=== PATIENT | female | born 1980 | race Caucasian/White ===

== ENCOUNTER 2017-03-14 03:58 | Emergency (ER) | payer OTHER ==
[2017-03-14 04:02] VITALS: BMI 25.2
[2017-03-14 04:03] VITALS: BP 134/92; PULSE 80; RESP 18; TEMP 98.1; O2SAT 98
[2017-03-14] MEDS ORDERED: oxyCODONE 5 mg Immediate Release Tab PO STA (04:31)
--- NOTE | 2017-03-14 04:51 | ED PDOC ---
Arrival/HPI - General Chief Complaint: Back Pain Time Seen by Provider: 03/14/17 04:02 Historian: Patient - History of Present Illness Narrative History of Present Illness (Text): 03/14/17 04:10 A 36 year old female presents to the Emergency department complaining of lower back pain since last night. Patient reports no trauma. Patient notes she was lifting something heavy a couple days ago. Patient also notes a history of lower back pain in the past. Patient denies any other complaints at this time. Time/Duration: Other (last night) Symptom Onset: Sudden Symptom Course: Unchanged Activities at Onset: Rest Context: Home Associated Symptoms (Text): none Past Medical History - Provider Review Nursing Documentation Reviewed: Yes - Infectious Disease Hx of Infectious Diseases: None - Tetanus Immunization Tetanus Immunization: Unknown - Cardiac Hx Cardiac Disorders: No - Pulmonary Hx Respiratory Disorders: No - Neurological Hx Neurological Disorder: No - HEENT Hx HEENT Disorder: No - Renal Hx Renal Disorder: No - Endocrine/Metabolic Hx Endocrine Disorders: No - Hematological/Oncological Hx Blood Disorders: No - Integumentary Hx Dermatological Disorder: Yes Hx Psoriasis: Yes - Musculoskeletal/Rheumatological Hx Musculoskeletal Disorders: Yes Other/Comment: sciatica. tendonitis. broke tail bone - Gastrointestinal Hx Gastrointestinal Disorders: Yes Hx Gastritis: Yes Other/Comment: peptic ulcer. colitis - Genitourinary/Gynecological Hx Genitourinary Disorders: Yes Other/Comment: overian cyst. endometriosis - Psychiatric Hx Psychophysiologic Disorder: No Hx Substance Use: No - Surgical History Other/Comment: ovarian cyst. colonscopy - Anesthesia Hx Anesthesia: Yes Hx Malignant Hyperthermia: No - Suicidal Assessment Feels Threatened In Home Enviroment: No Family/Social History - Physician Review Nursing Documentation Reviewed: Yes Family/Social History: No Known Family HX Smoking Status: Current Some Days Smoker Hx Alcohol Use: Yes (SOCIALLY) Frequency of alcohol use: Socially Hx Substance Use: No Hx Substance Use Treatment: No Allergies/Home Meds Allergies/Adverse Reactions: Allergies kiwi Allergy (Verified 02/22/16 14:14) ANGIOEDEMA Review of Systems - Physician Review All systems were reviewed & negative as marked: Yes - Review of Systems Constitutional: absent: Fevers Cardiovascular: absent: Chest Pain Musculoskeletal: Back Pain (lower) Neurological: absent: Headache, Dizziness Physical Exam Vital Signs Reviewed: Yes Vital Signs Temp Pulse Resp BP Pulse Ox 03/14/17 04:03 98.1 F 80 18 134/92 H 98 Temperature: Afebrile Blood Pressure: Hypertensive Pulse: Regular Respiratory Rate: Normal Appearance: Positive for: Well-Appearing, Non-Toxic, Comfortable Pain Distress: None Mental Status: Positive for: Alert and Oriented X 3 - Systems Exam Head: Present: Atraumatic, Normocephalic Pupils: Present: PERRL Extroacular Muscles: Present: EOMI Conjunctiva: Present: Normal Mouth: Present: Moist Mucous Membranes Neck: Present: Normal Range of Motion Respiratory/Chest: Present: Clear to Auscultation, Good Air Exchange. No: Respiratory Distress, Accessory Muscle Use Cardiovascular: Present: Regular Rate and Rhythm, Normal S1, S2. No: Murmurs Abdomen: Present: Normal Bowel Sounds. No: Tenderness, Distention, Peritoneal Signs Back: Present: Normal Inspection Upper Extremity: Present: Normal Inspection. No: Cyanosis, Edema Lower Extremity: Present: Normal Inspection. No: Edema Neurological: Present: GCS=15, CN II-XII Intact, Speech Normal Skin: Present: Warm, Dry, Normal Color. No: Rashes Psychiatric: Present: Alert, Oriented x 3, Normal Insight, Normal Concentration Medical Decision Making ED Course and Treatment: 03/14/17 04:10 Impression: A 36 year old male with lower back pain. Differential Diagnosis included but are not limited to: Plan: -- Flexeril, Oxycodone -- Reassess and disposition Prior Visits: Notes and results from previous visits were reviewed. Patient last reported to the Emergency department on 02/22/16 for evaluation of dysuria, frequency and urgency. Patient was advised to follow up with private doctor and take medications. Patient also advised to see SWITCH TECHNICIAN to review STD test and urine culture result. Patient was discharged. Progress Notes: 03/14/17 04:20 On re-evaluation, patient feels better and is in no acute distress. I have discussed the results and plan with the patient, who expresses understanding. Patient in agreement with plan to be discharged home. Patient is stable for discharge. Patient was instructed to follow up with physician or return if symptoms worsen or new concerning symptoms arise. - Medication Orders Current Medication Orders: Discontinued Medications Cyclobenzaprine HCl (Flexeril) 10 mg PO STAT STA Stop: 03/14/17 04:32 Last Admin: 03/14/17 04:42 Dose: 10 mg Oxycodone HCl (Oxycodone Immediate Release Tab) 5 mg PO STAT STA Stop: 03/14/17 04:32 Last Admin: 03/14/17 04:42 Dose: 5 mg - Scribe Statement The provider has reviewed the documentation as recorded by the Joel Castanon Provider Scribe Attestation: All medical record entries made by the Scribe were at my direction and personally dictated by me. I have reviewed the chart and agree that the record accurately reflects my personal performance of the history, physical exam, medical decision making, and the department course for this patient. I have also personally directed, reviewed, and agree with the discharge instructions and disposition. Disposition/Present on Arrival - Present on Arrival Any Indicators Present on Arrival: No History of DVT/PE: No History of Uncontrolled Diabetes: No Urinary Catheter: No History of Decub. Ulcer: No History Surgical Site Infection Following: None - Disposition Have Diagnosis and Disposition been Completed?: Yes Diagnosis: Low back pain Disposition: HOME/ ROUTINE Disposition Time: 04:25 Condition: GOOD Discharge Instructions (ExitCare): Acute Low Back Pain (ED) Additional Instructions: Thank you for letting us take care of you today. Your provider was Dr. Rivas. You were treated for back pain. The emergency medical care you received today was directed at your acute symptoms. If you were prescribed any medication, please fill it and take as directed. It may take several days for your symptoms to resolve. Return to the Emergency Department if your symptoms worsen, do not improve, or if you have any other problems. Please contact your doctor or call one of the physicians/clinics you have been referred to that are listed on the Patient Visit Information form that is included in your discharge packet. Bring any paperwork you were given at discharge with you along with any medications you are taking to your follow up visit. Our treatment cannot replace ongoing medical care by a primary care provider (PCP) outside of the emergency department. Thank you for allowing the [facility] team to be part of your care today. Follow up with your doctor in 2-3 days for re-evaluation. Prescriptions: Cyclobenzaprine [Cyclobenzaprine HCl] 10 mg PO Q8 PRN #20 tab PRN Reason: Muscle Spasm oxyCODONE [oxyCODONE Immediate Release Tab] 5 mg PO Q6 PRN #10 tab PRN Reason: Pain, Severe (8-10) Referrals: [facility], [Non-Staff] - Follow up with primary
== END 2017-03-14 04:46 | disposition home or self-care (01) ==
LOC: ED 03:58
DX: M54.5 Low back pain (principal)

== ENCOUNTER 2017-04-19 01:14 | Emergency (ER) | payer OTHER ==
[2017-04-19 01:38] VITALS: BP 136/89; PULSE 90; TEMP 97.8; BMI 24.7
--- NOTE | 2017-04-19 01:45 | ED PDOC ---
Arrival/HPI - General Chief Complaint: Eye Problem Time Seen by Provider: 04/19/17 01:38 Historian: Patient - History of Present Illness Narrative History of Present Illness (Text): 04/19/17 01:44 Latrice Stiles is a 36 year old female who presents to the Emergency department complaining of right eye stye for the past 2 weeks, worse over the past 3-4 days. Patient reports associated right eye irritation and notes she was seen by her PMD this week for similar complaints. Patient was placed on Zithromycin but denies any relief. Patient denies any vision changes, eye discharge, headache, or any other complaints. Time/Duration: < month (2 weeks) Symptom Onset: Gradual Symptom Course: Unchanged Activities at Onset: Rest, Light Context: Home Past Medical History - Provider Review Nursing Documentation Reviewed: Yes - Infectious Disease Hx of Infectious Diseases: None - Tetanus Immunization Tetanus Immunization: Unknown - Cardiac Hx Cardiac Disorders: No - Pulmonary Hx Respiratory Disorders: No - Neurological Hx Neurological Disorder: No - HEENT Hx HEENT Disorder: No - Renal Hx Renal Disorder: No - Endocrine/Metabolic Hx Endocrine Disorders: No - Hematological/Oncological Hx Blood Disorders: No - Integumentary Hx Dermatological Disorder: Yes Hx Psoriasis: Yes - Musculoskeletal/Rheumatological Hx Musculoskeletal Disorders: Yes Other/Comment: sciatica. tendonitis. broke tail bone - Gastrointestinal Hx Gastrointestinal Disorders: Yes Hx Gastritis: Yes Other/Comment: peptic ulcer. colitis - Genitourinary/Gynecological Hx Genitourinary Disorders: Yes Other/Comment: overian cyst. endometriosis - Psychiatric Hx Psychophysiologic Disorder: No Hx Substance Use: No - Surgical History Other/Comment: ovarian cyst. colonscopy - Anesthesia Hx Anesthesia: Yes Hx Malignant Hyperthermia: No - Suicidal Assessment Feels Threatened In Home Enviroment: No Family/Social History - Physician Review Nursing Documentation Reviewed: Yes Family/Social History: Unknown Family HX Smoking Status: Current Some Days Smoker Hx Alcohol Use: Yes (SOCIALLY) Hx Substance Use: No Hx Substance Use Treatment: No Allergies/Home Meds Allergies/Adverse Reactions: Allergies kiwi Allergy (Verified 04/19/17 01:38) ANGIOEDEMA Review of Systems - Physician Review All systems were reviewed & negative as marked: Yes - Review of Systems Constitutional: Normal Eyes: Other (+right eye stye, +right eye irritation) ENT: Normal Gastrointestinal: Normal. absent: Diarrhea, Nausea, Vomiting Neurological: Normal. absent: Headache, Dizziness Psychiatric: Normal Physical Exam Vital Signs Reviewed: Yes Vital Signs Temp Pulse Resp BP Pulse Ox 04/19/17 01:38 97.8 F 90 16 136/89 98 04/19/17 01:37 97.8 F 90 16 136/89 100 Temperature: Afebrile Blood Pressure: Normal Pulse: Regular Respiratory Rate: Normal Appearance: Positive for: Well-Appearing, Non-Toxic, Comfortable Pain Distress: None Mental Status: Positive for: Alert and Oriented X 3 - Systems Exam Head: Present: Normocephalic, Other (Right eye stye) Pupils: Present: PERRL Extroacular Muscles: Present: EOMI Conjunctiva: Present: Normal Mouth: Present: Moist Mucous Membranes Neck: Present: Normal Range of Motion Neurological: Present: GCS=15, CN II-XII Intact, Speech Normal Skin: Present: Warm, Dry, Normal Color. No: Rashes Psychiatric: Present: Alert, Oriented x 3, Normal Insight, Normal Concentration Medical Decision Making ED Course and Treatment: 04/19/17 01:44 Impression: 36 year old female complaining of a right eye stye with associated irritation. Differential Diagnosis include but are not limited to: stye Plan: -- Tobrex -- Bactrim -- Reassess and disposition Prior Visits: Notes and results from previous visits were reviewed. On 03/14/2017, pt was seen in the Emergency department for lower back pain. Pt was d/c home. Progress Notes: 04/19/17 02:23 On re-evaluation, the patient feels better and is in no acute distress. I have discussed the results and plan with the patient, who expresses understanding. Patient in agreement with plan to discharged home. Patient is stable for discharge. Patient was instructed to follow up with physician/opthamologist/ clinic in 1-2 days or return if symptoms worsen or new concerning symptoms arise. Re-evaluation Time: 02:23 Reassessment Condition: Re-examined, Improved - Medication Orders Current Medication Orders: Discontinued Medications Tobramycin Sulfate (Tobrex 0.3% Ophth Oint) 0 appl OD STAT STA Stop: 04/19/17 02:02 Last Admin: 04/19/17 02:20 Dose: 1 applic Trimethoprim/Sulfamethoxazole (Bactrim Ds Tab) 1 tab PO ONCE ONE PRN Reason: Protocol Stop: 04/19/17 02:02 Last Admin: 04/19/17 02:20 Dose: 1 tab - Scribe Statement The provider has reviewed the documentation as recorded by the Scribe Ioana Rose All medical record entries made by the Scribe were at my direction and personally dictated by me. I have reviewed the chart and agree that the record accurately reflects my personal performance of the history, physical exam, medical decision making, and the department course for this patient. I have also personally directed, reviewed, and agree with the discharge instructions and disposition. Disposition/Present on Arrival - Present on Arrival Any Indicators Present on Arrival: No History of DVT/PE: No History of Uncontrolled Diabetes: No Urinary Catheter: No History of Decub. Ulcer: No History Surgical Site Infection Following: None - Disposition Have Diagnosis and Disposition been Completed?: Yes Diagnosis: Sty, external Disposition: HOME/ ROUTINE Disposition Time: 02:23 Patient Problems: Current Active Problems Problem Status Onset Sty, external Acute Condition: GOOD Discharge Instructions (ExitCare): Sg (ED) Additional Instructions: apply ointment 3 day to rt eye Prescriptions: Sulfamethoxazole/Trimethoprim [Bactrim DS 800 mg-160 mg] 1 tab PO BID #14 tab Referrals: Bernadette Lord DO [Primary Care Provider] - Follow up with primary Kit Carney MD [Staff Provider] - Follow up with primary
[2017-04-19] MEDS ORDERED: Tobramycin 0.3% OPH OINT OD STA (02:01)
[2017-04-19] MEDS ORDERED: Tmp-Smz 800 mg-160 mg DS Tab PO ONE (02:01)
[2017-04-19 02:52] VITALS: RESP 18; O2SAT 97
== END 2017-04-19 02:52 | disposition home or self-care (01) ==
LOC: ED 01:14
DX: H00.013 Hordeolum externum right eye, unspecified eyelid (principal)